=== PATIENT | male | born 1955 | race Caucasian/White ===

== ENCOUNTER 2017-04-12 09:10 | Outpatient (CLI) | payer OTHER ==
[2017-04-12] MEDS ORDERED: SUPPORT237 ML PO (15:02)
[2017-04-12] MEDS ORDERED: AMBIEN5 MG PO (15:03)
[2017-04-12] MEDS ORDERED: TRAMADOL HCL50 MG PO (15:03)
[2017-04-12] MEDS ORDERED: CLONAZEPAM0.5 MG PO (15:03)
[2017-04-14] MEDS ORDERED: SURFAK240 M1 PO (07:22)
[2017-04-14] MEDS ORDERED: POLY119PG PO (07:22)
[2017-04-14] MEDS ORDERED: PERCOCET 5-3251 EACH PO (07:22)
== END 2017-04-12 09:41 | disposition home or self-care (01) ==
LOC: LAB 09:10
DX: K43.9 Ventral hernia without obstruction or gangrene (principal); Z01.810 Encounter for preprocedural cardiovascular examination

== ENCOUNTER 2018-06-23 11:23 | Outpatient (CLI) | payer OTHER ==
[~2018-06-23 11:23] MED LIST: AMBIEN5 MG PO; CLONAZEPAM0.5 MG PO; PERCOCET 5-3251 EACH PO; POLY119PG PO; SUPPORT237 ML PO; SURFAK240 M1 PO; TRAMADOL HCL50 MG PO
== END 2018-06-23 11:31 | disposition home or self-care (01) ==
LOC: LAB 11:23
DX: N41.8 Other inflammatory diseases of prostate (principal); I10 Essential (primary) hypertension; D64.89 Other specified anemias; E11.9 Type 2 diabetes mellitus without complications; E78.00 Pure hypercholesterolemia, unspecified; E03.8 Other specified hypothyroidism; N39.0 Urinary tract infection, site not specified; Z12.12 Encounter for screening for malignant neoplasm of rectum

== ENCOUNTER → 2019-04-20 | Outpatient (CLI) | payer OTHER | END | disposition home or self-care (01) | LOC: LAB 10:56 | DX: I10 Essential (primary) hypertension (principal); R73.01 Impaired fasting glucose; E78.00 Pure hypercholesterolemia, unspecified; N41.8 Other inflammatory diseases of prostate; Z12.12 Encounter for screening for malignant neoplasm of rectum; N39.0 Urinary tract infection, site not specified ==

== ENCOUNTER → 2019-11-21 09:59 | Outpatient (CLI) | payer OTHER | END | disposition home or self-care (01) | LOC: LAB 09:59 | PROVIDERS: ATTEND Internal Medicine Rheumatology | DX: M81.0 Age-related osteoporosis without current pathological fracture (principal); E55.9 Vitamin D deficiency, unspecified ==

== ENCOUNTER → 2019-12-20 | Emergency (ER) | payer OTHER ==
[~2019-12-20] VITALS: Ht 172.7 cm; Wt 95.3 kg
== END | disposition home or self-care (01) ==
LOC: ER 19:14
DX: N39.0 Urinary tract infection, site not specified (principal)

== ENCOUNTER 2020-01-22 11:03 | Outpatient (CLI) | payer OTHER | END 2020-01-22 11:24 | disposition home or self-care (01) | LOC: LAB 11:03 | PROVIDERS: ATTEND Urology | DX: N40.1 Benign prostatic hyperplasia with lower urinary tract symptoms (principal); B96.29 Other Escherichia coli [E. coli] as the cause of diseases classified elsewhere; R31.29 Other microscopic hematuria ==

== ENCOUNTER 2020-02-05 08:33 | Outpatient (CLI) | payer OTHER | END 2020-02-05 08:44 | disposition home or self-care (01) | LOC: NUCLEAR 08:33 | PROVIDERS: ATTEND Internal Medicine Rheumatology | DX: M85.89 Other specified disorders of bone density and structure, multiple sites (principal) ==

== ENCOUNTER → 2020-05-07 | Emergency (ER) | payer OTHER ==
[~2020-05-07] VITALS: Ht 172.7 cm; Wt 94.3 kg
[~2020-05-07] MED LIST changes: +DYAZIDE 37.5-21 EACH; +TAMS0.4C
== END | disposition left against medical advice (07) ==
LOC: ER 12:05
DX: M62.830 Muscle spasm of back (principal)

== ENCOUNTER 2021-01-13 11:29 | Emergency (ER) | payer OTHER ==
[~2021-01-13] VITALS: Ht 172.7 cm; Wt 98.9 kg
[2021-01-13] MEDS ORDERED: NORFLEX100MG PO (13:02)
[2021-01-13] MEDS ORDERED: KETO10TA2 PO (13:02)
== END 2021-01-13 13:10 | disposition home or self-care (01) ==
LOC: ER 11:29
DX: M54.59 Other low back pain (principal)